=== PATIENT | female | born 1995 | race American Indian/Alaskan Native ===

== ENCOUNTER 2018-11-20 18:34 | Emergency (ER) | payer MEDICAID ==
[2018-11-20] MEDS ORDERED: ATROVENT IH ONE ×2 (18:44→20:23)
[2018-11-20] MEDS ORDERED: PROVENTIL IH ONE ×2 (18:44→20:23)
--- NOTE | 2018-11-20 18:44 | Emergency Department Report ---
Chief Complaint: Dyspnea/Respdistress Stated Complaint: COLD/FLU Time Seen by Provider: 11/20/18 18:40 - HPI History of Present Illness: Pt presents with a cough that began two days ago states she congestion, SOB, wheezing, nasal discharge + sick contact from daughter no fever has seasonal allergies, has not taken anything LNMP currently on cycle no previous PMHx of asthma states she took her nieces nebulizer treatment +smoker daily MSE screening note: Focused history and physical exam performed. Due to findings the following was ordered: CXR, neb tx ED Disposition for MSE Condition: Stable
--- NOTE | 2018-11-20 20:07 | XRay Report ---
PROCEDURE: XR CHEST ROUTINE 2V TECHNIQUE: PA and lateral chest radiographs were obtained. HISTORY: cough, wheezing COMPARISONS: None. FINDINGS: Heart: Normal. Mediastinum/Vessels: Normal. Lungs/Pleural space: Normal. Bony thorax: No acute osseous abnormality. IMPRESSION: Normal examination. This document is electronically signed by Stephanie Elise MD., Nov 20 2018 08:05:24 PM ET
[2018-11-20] MEDS ORDERED: AUGMENTIN 875 MG PO ONE (20:21)
[2018-11-20] MEDS ORDERED: SOLU-Medrol IV ONE (20:23)
--- NOTE | 2018-11-20 20:25 | Emergency Department Report ---
Minor Respiratory - HPI Chief Complaint: Dyspnea/Respdistress Stated Complaint: COLD/FLU Time Seen by Provider: 11/20/18 18:40 Duration: 1 Day Pain Location: Chest (tightness and wheezing in 8/10 and worse with cough and) Severity: severe Minor Respiratory: Yes Rhinorrhea (started with nasal congestion and runny nose with mild cough), Yes Able to Tolerate Fluids, Yes Cough (congested cough), Yes Sick Contacts, Yes Chest Pain (with cough), Yes Shortness of Breath (on exertion), No Sore Throat, No Ear Pain, No Hemoptysis, No Fever Other History: This is a 23-year-old female here reports that she is having some shortness of breath since last evening. She denies any history of asthma. She reports that she has been coughing and as this started about a week ago with runny nose and congestion and occasional cough. She said her child was sick. She reports that she is wheezing and coughing up phlegm. Denies any fever or chills. Denies any nausea or vomiting. Denies any headache. Denies any sore throat. [id number] medication taken without any help. Denies any medical condition. Pain is only with cough, 8/10 and achy to chest. ED Review of Systems ROS: Stated complaint: COLD/FLU Other details as noted in HPI Constitutional: denies: chills, fever Eyes: denies: eye discharge ENT: congestion (I). denies: ear pain, throat pain Respiratory: cough, shortness of breath, SOB with exertion, wheezing. denies: SOB at rest, stridor Cardiovascular: chest pain (with cough). denies: palpitations, dyspnea on exertion, edema, syncope Gastrointestinal: denies: abdominal pain, nausea, vomiting Musculoskeletal: denies: back pain, arthralgia Skin: denies: rash Neurological: denies: headache, numbness ED Past Medical Hx - Past Medical History Previous Medical History?: No - Surgical History Past Surgical History?: No - Family History Family history: hypertension - Social History Smoking Status: Current Every Day Smoker Substance Use Type: Alcohol, Marijuana, Other - Medications Home Medications: Home Medications Medication Instructions Recorded Confirmed Last Taken Type ALBUTEROL Inhaler (OR & NICU) 2 puff IH Q6H PRN #1 inhalation 11/20/18 Unknown Rx [ProAir HFA Inhaler] Cetirizine HCl [ZyrTEC] 10 mg PO QAM 14 Days #14 capsule 11/20/18 Unknown Rx Fluticasone [Flonase] 1 spray NS QDAY 14 Days #14 bottle 11/20/18 Unknown Rx Inhaler, Assist Devices [Space 1 each MC ONCE #1 spacer 11/20/18 Unknown Rx Chamber Plus] guaiFENesin/CODEINE [Robitussin AC] 10 ml PO QHS PRN #70 oral.liqd 11/20/18 Unknown Rx methylPREDNISolone [Medrol Dose 4 mg PO DAILY #1 tab.ds.pk 11/20/18 Unknown Rx Erickson] Minor Respiratory Exam - Exam General: Vital signs noted. No distress. Alert and acting appropriately. This is a 23-year-old female well-nourished well-developed in no acute distress. HEENT: Yes Moist Mucous Membranes, Yes Rhinorrhea (with nasal congestion), No Pharyngeal Erythema, No Pharyngeal Exudates, No Conjuctival Injection, No Frontal Tenderness, No Maxillary Tenderness Ear: Neither TM Bulge, Neither TM Erythema, Neither EAC Pain, Neither EAC D ischarge Neck: Yes Supple (nontender to palpate. Full range of motion), No Adenopathy Lungs: Yes Wheezes (patient will wheezing to bilateral upper and lower lung martinez.), Yes Ronchi (upper lung martinez), Yes Cough (congested cough), No Stridor, No Labored Respirations, No Retractions, No Use of Accessory Muscles, No Other Abnormal Lung Sounds Heart: Yes Regular (mild tachycardia at 103), No Murmur Abdomen: Yes Normal Bowel Sounds, No Tenderness (normal bowel sounds and nontender to palpate in all quadrants), No Peritoneal Signs Skin: No Rash, No Edema Neurologic: Alert and oriented, no deficits. Musculoskeletal: Unremarkable. No cce. + 2 pulses in all extremities, no neurovascular compromise ED Course Vital Signs 11/20/18 11/20/18 11/20/18 18:41 18:52 18:54 Temperature 98 F Pulse Rate 103 H Pulse Rate [ 112 H Throughout] Respiratory 22 18 Rate Respiratory 20 Rate [ Throughout] Blood Pressure 116/69 O2 Sat by Pulse 94 Oximetry Vital Signs 11/20/18 11/20/18 11/20/18 18:41 18:52 18:54 Temperature 98 F Pulse Rate 103 H Pulse Rate [ 112 H Throughout] Respiratory 22 18 Rate Respiratory 20 Rate [ Throughout] Blood Pressure 116/69 Blood Pressure [Right] O2 Sat by Pulse 94 Oximetry 11/20/18 11/20/18 20:39 23:10 Temperature 97.6 F Pulse Rate 95 H Pulse Rate [ 102 H Throughout] Respiratory 18 Rate Respiratory 20 Rate [ Throughout] Blood Pressure Blood Pressure 119/79 [Right] O2 Sat by Pulse 97 Oximetry - Reevaluation(s) Reevaluation #1: 11/20/18 19:30 I saw patient and she was already started on albuterol 5 mg and Atrovent 0.5 mg and she still with congested cough and wheezing and rhonchi to lung martinez. She says she is feeling a little better but still wheezing. She denies any shortne ss of breath at present. Reevaluation #2: 11/20/18 22:01 Patient was given additional 5 mg of albuterol with one milligrams of Atrovent nebulizer, Solu-Medrol 125 mg IV given. Upon reevaluation, patient states she is feeling much better. She has minimal wheeze in with no rhonchi. Wheezes and is located to upper lung martinez. Denies any shortness of breath or chest pain and cough is better. ED Medical Decision Making - Radiology Data Radiology results: report reviewed Two-view x-ray of chest dictated by radiologist's report reviewed by myself. Please see details below Findings [facility] [address] [place] [address] XRay Report Signed Patient: CHESTER FRANKS MR#: [id number] : 1995 Acct:[id number] Age/Sex: 23 / F ADM Date: 11/20/18 Loc: ED Attending Dr: Ordering Physician: JUANITA CASTRO Date of Service: 11/20/18 Procedure(s): XR chest routine 2V Accession Number(s): [id number] cc: JUANITA CASTRO Fluoro Time In Minutes: PROCEDURE: XR CHEST ROUTINE 2V TECHNIQUE: PA and lateral chest radiographs were obtained. HISTORY: cough, wheezing COMPARISONS: None. FINDINGS: Heart: Normal. Mediastinum/Vessels: Normal. Lungs/Pleural space: Normal. Bony thorax: No acute osseous abnormality. IMPRESSION: Normal examination. This document is electronically signed by Yakov Ricardo MD., Nov 20 2018 08:05:24 PM ET Transcribed By: THIEN Dictated By: YAKOV RICARDO Electronically Authenticated By: YAKOV RICARDO Signed Date/Time: 11/20/182006 DD/ 56 TD/TT: 11/20/181956 - Medical Decision Making This is a 23-year-old female here reports that she has been having shortness of breath and denies any history of any medical problem. She has shortness of breath on exertion and cough and has been having upper respiratory symptoms that preceded, wheezing, shortness of breath and exertion and continual coughing. She was exposed to her child was sick. Chest x-ray: Dictated by radiologist report reviewed by myself in no acute findings. Medication: Patient was given a total of 10 mg of albuterol, 1.5 mg of Atrovent nebulizer. She was given Solu-Medrol 125 mg IV and upon reevaluation 2 she says she felt a lot better, she does not have any chest pain, no shortness of breath and her wheezing has subsided with minimal wheezing to bilateral upper lung field and no rhonchi. No use of accessory muscles. Vital signs stable. A moderate - Differential Diagnosis PNA, bronchitis, asthma, URI with cough and congestion Critical care attestation.: If time is entered above; I have spent that time in minutes in the direct care of this critically ill patient, excluding procedure time. ED Disposition Clinical Impression: Cough in adult Acute bronchitis Qualifiers: Bronchitis organism: unspecified organism Qualified Code(s): J20.9 - Acute bronchitis, unspecified Disposition: DC-01 TO HOME OR SELFCARE Is pt being admited?: No Does the pt Need Aspirin: No Condition: Stable Instructions: Acute Bronchitis (ED), Acute Cough (ED) Additional Instructions: Please follow up with primary care physician in 2-3 days and if he do not have a primary care physician follow-up at the outside [facility] Center Take albuterol Take guaifenesin with codeine cough syrup once nightly as needed before bed time and this medication can cause drowsiness. Do not drive or operate heavy machinery while taking this medication Take Flonase,and Zyrtec for upper respiratory with cough and congestion Take Augmentin antibiotic, albuterol, Medrol Dosepak for bronchitis but please take this medication with food as it can cause upset stomach. If your condition worsens, return to the emergency room. Flush nostrils with nasal saline wash. If your condition worsens, please return to the emergency room SATHISH Referrals: ROMY OROZCO MD [Primary Care Provider] - 11/22/18 Forms: Work/School Release Form(ED)
[2018-11-20 23:11] VITALS: BP 119/79
== END 2018-11-20 23:35 | disposition home or self-care (01) ==
LOC: ED 18:34
DX: J20.9 Acute bronchitis, unspecified (principal); F17.200 Nicotine dependence, unspecified, uncomplicated; F12.10 Cannabis abuse, uncomplicated
CPT/HCPCS: 71046; 94640; 96374; 99283; J2930

== ENCOUNTER 2019-06-23 10:15 | Emergency (ER) | payer MEDICAID ==
[2019-06-23 10:22] VITALS: BP 125/74
[2019-06-23 11:02] LABS: Bacteria,Urine 1+ /HPF (Negative); Bilirubin,Urine NEG (Negative); Blood,Urine NEG (Negative); Color,Urine Yellow (Yellow); Mucus,Urine FEW /HPF; Protein,Urine <15 mg/dL mg/dL (Negative)
[2019-06-23 11:29] LABS: Basophils % (Auto) 0.3 % (0.0-1.8); Eosinophils # (Auto) 0.1 K/mm3 (0.0-0.4); Eosinophils % (Auto) 1.4 % (0.0-4.3); Hematocrit 39.7 % (30.3-42.9); Hemoglobin 12.9 gm/dl (10.1-14.3); Lymphocytes # (Auto) 1.7 K/mm3 (1.2-5.4); Lymphocytes % (Auto) 20.1 % (13.4-35.0); Mean Corpuscular HGB Conc 33 % (30-34); Mean Corpuscular Volume 80 fl (79-97); Monocytes # (Auto) 0.6 K/mm3 (0.0-0.8); Monocytes % (Auto) 7.2 % (0.0-7.3); Platelet Count 208 K/mm3 (140-440); Red Blood Count 4.99 M/mm3 (3.65-5.03); Red Cell Distribution Width 17.1 % (13.2-15.2)
[2019-06-23 11:38] LABS: Alanine Aminotransferase 21 units/L (7-56); Albumin 4.4 g/dL (3.9-5); BUN/Creatinine Ratio 12; Blood Urea Nitrogen 7 mg/dL (7-17); Calcium 9.4 mg/dL (8.4-10.2); Hemolysis Index 3
--- NOTE | 2019-06-23 12:18 | Emergency Department Report ---
ED Female HPI - General Chief complaint: Abdominal Pain Stated complaint: ABDOMINAL PAIN/NAUSEA (PREG) Time Seen by Provider: 06/23/19 11:18 Source: patient Mode of arrival: Ambulatory Limitations: No Limitations - History of Present Illness Initial comments: This is a 24-year-old female at approximately 6 weeks gestation presents to ED complaining of upper abdominal cramping with nausea vomiting. Patient states that she has not received care for this . States that she went to [facility] once. Patient states the pain is worse and after vomiting. Patient states discussed pain as cramping type pain localized to the upper mid abdomen region Patient denies lower pelvic pain, vaginal bleeding, vaginal discharge, dysuria or any other symptoms. - Related Data Previous Rx's Medication Instructions Recorded Last Taken Type ALBUTEROL Inhaler (OR & NICU) 2 puff IH Q6H PRN #1 inhalation 11/20/18 Unknown Rx [ProAir HFA Inhaler] Amoxicillin/K Clav Tab [Augmentin 1 tab PO Q12HR #20 tab 11/20/18 Unknown Rx 875MG TAB] Cetirizine HCl [ZyrTEC] 10 mg PO QAM 14 Days #14 capsule 11/20/18 Unknown Rx Fluticasone [Flonase] 1 spray NS QDAY 14 Days #14 bottle 11/20/18 Unknown Rx Inhaler, Assist Devices [Space 1 each MC ONCE #1 spacer 11/20/18 Unknown Rx Chamber Plus] guaiFENesin/CODEINE [Robitussin AC] 10 ml PO QHS PRN #70 oral.liqd 11/20/18 Unkn own Rx methylPREDNISolone [Medrol Dose 4 mg PO DAILY #1 tab.ds.pk 11/20/18 Unknown Rx Erickson] Ondansetron [Zofran ODT TAB] 8 mg PO Q12HR 20 Days #20 06/23/19 Unknown Rx tab.rapdis raNITIdine HCl [Zantac] 150 mg PO BID #20 tablet 06/23/19 Unknown Rx Allergies Allergy/AdvReac Type Severity Reaction Status Date / Time No Known Allergies Allergy Unverified 11/20/18 18:44 ED Review of Systems ROS: Stated complaint: ABDOMINAL PAIN/NAUSEA (PREG) Other details as noted in HPI Comment: All other systems reviewed and negative ED Past Medical Hx - Past Medical History Previous Medical History?: No - Surgical History Past Surgical History?: No - Social History Smoking Status: Never Smoker Substance Use Type: None - Medications Home Medications: Home Medications Medication Instructions Recorded Confirmed Last Taken Type ALBUTEROL Inhaler (OR & NICU) 2 puff IH Q6H PRN #1 inhalation 11/20/18 Unknown Rx [ProAir HFA Inhaler] Amoxicillin/K Clav Tab [Augmentin 1 tab PO Q12HR #20 tab 11/20/18 Unknown Rx 875MG TAB] Cetirizine HCl [ZyrTEC] 10 mg PO QAM 14 Days #14 capsule 11/20/18 Unknown Rx Fluticasone [Flonase] 1 spray NS QDAY 14 Days #14 bottle 11/20/18 Unknown Rx Inhaler, Assist Devices [Space 1 each MC ONCE #1 spacer 11/20/18 Unknown Rx Chamber Plus] guaiFENesin/CODEINE [Robitussin AC] 10 ml PO QHS PRN #70 oral.liqd 11/20/18 Unknown Rx methylPREDNISolone [Medrol Dose 4 mg PO DAILY #1 tab.ds.pk 11/20/18 Unknown Rx Erickson] Ondansetron [Zofran ODT TAB] 8 mg PO Q12HR 20 Days #20 06/23/19 Unknown Rx tab.rapdis raNITIdine HCl [Zantac] 150 mg PO BID #20 tablet 06/23/19 Unknown Rx ED Physical Exam - General Limitations: No Limitations General appearance: alert, in no apparent distress - Head Head exam: Present: atraumatic, normocephalic - Eye Eye exam: Present: normal appearance - ENT ENT exam: Present: mucous membranes moist - Neck Neck exam: Present: normal inspection - Respiratory Respiratory exam: Present: normal lung sounds bilaterally. Absent: respiratory distress - Cardiovascular Cardiovascular Exam: Present: regular rate, normal rhythm. Absent: systolic murmur, diastolic murmur, rubs, gallop - GI/Abdominal GI/Abdominal exam: Present: soft, normal bowel sounds. Absent: distended, tenderness, mass - Extremities Exam Extremities exam: Present: normal inspection - Back Exam Back exam: Present: normal inspection - Neurological Exam Neurological exam: Present: alert, oriented X3 - Psychiatric Psychiatric exam: Present: normal affect, normal mood - Skin Skin exam: Present: warm, dry, intact, normal color. Absent: rash ED Course Vital Signs 06/23/19 10:21 Temperature 97.9 F Pulse Rate 69 Respiratory 20 Rate Blood Pressure 125/74 O2 Sat by Pulse 99 Oximetry ED Medical Decision Making - Lab Data Result diagrams: 06/23/19 10:57 06/23/19 10:57 Laboratory Last Values WBC 8.5 K/mm3 (4.5-11.0) 06/23/19 10:57 RBC 4.99 M/mm3 (3.65-5.03) 06/23/19 10:57 Hgb 12.9 gm/dl (10.1-14.3) 06/23/19 10:57 Hct 39.7 % (30.3-42.9) 06/23/19 10:57 MCV 80 fl (79-97) 06/23/19 10:57 MCH 26 pg (28-32) L 06/23/19 10:57 MCHC 33 % (30-34) 06/23/19 10:57 RDW 17.1 % (13.2-15.2) H 06/23/19 10:57 Plt Count 208 K/mm3 (140-440) 06/23/19 10:57 Lymph % (Auto) 20.1 % (13.4-35.0) 06/23/19 10:57 Centre % (Auto) 7.2 % (0.0-7.3) 06/23/19 10:57 Eos % (Auto) 1.4 % (0.0-4.3) 06/23/19 10:57 Baso % (Auto) 0.3 % (0.0-1.8) 06/23/19 10:57 Lymph # 1.7 K/mm3 (1.2-5.4) 06/23/19 10:57 Centre # 0.6 K/mm3 (0.0-0.8) 06/23/19 10:57 Eos # 0.1 K/mm3 (0.0-0.4) 06/23/19 10:57 Baso # 0.0 K/mm3 (0.0-0.1) 06/23/19 10:57 Seg Neutrophils % 71.0 % (40.0-70.0) H 06/23/19 10:57 Seg Neutrophils # 6.0 K/mm3 (1.8-7.7) 06/23/19 10:57 Sodium 133 mmol/L (137-145) L 06/23/19 10:57 Potassium 3.6 mmol/L (3.6-5.0) 06/23/19 10:57 Chloride 96.6 mmol/L (98-107) L 06/23/19 10:57 Carbon Dioxide 20 mmol/L (22-30) L 06/23/19 10:57 Anion Gap 20 mmol/L 06/23/19 10:57 BUN 7 mg/dL (7-17) 06/23/19 10:57 Creatinine 0.6 mg/dL (0.7-1.2) L 06/23/19 10:57 Estimated GFR > 60 ml/min 06/23/19 10:57 BUN/Creatinine Ratio 12 % 06/23/19 10:57 Glucose 92 mg/dL (65-100) 06/23/19 10:57 Calcium 9.4 mg/dL (8.4-10.2) 06/23/19 10:57 Total Bilirubin 0.60 mg/dL (0.1-1.2) 06/23/19 10:57 AST 26 units/L (5-40) 06/23/19 10:57 ALT 21 units/L (7-56) 06/23/19 10:57 Alkaline Phosphatase 56 units/L (35-129) 06/23/19 10:57 Total Protein 8.3 g/dL (6.3-8.2) H 06/23/19 10:57 Albumin 4.4 g/dL (3.9-5) 06/23/19 10:57 Albumin/Globulin Ratio 1.1 % 06/23/19 10:57 HCG, Qual Positive (Negative) 06/23/19 10:57 Urine Color Yellow (Yellow) 06/23/19 Unknown Urine Turbidity Slightly-cloudy (Clear) 06/23/19 Unknown Urine pH 6.0 (5.0-7.0) 06/23/19 Unknown Ur Specific [place] 1.015 (1.003-1.030) 06/23/19 Unknown Urine Protein <15 mg/dl mg/dL (Negative) 06/23/19 Unknown Urine Glucose (UA) Neg mg/dL (Negative) 06/23/19 Unknown Urine Ketones 20 mg/dL (Negative) 06/23/19 Unknown Urine Blood Neg (Negative) 06/23/19 Unknown Urine Nitrite Neg (Negative) 06/23/19 Unknown Urine Bilirubin Neg (Negative) 06/23/19 Unknown Urine Urobilinogen 4.0 mg/dL (<2.0) 06/23/19 Unknown Ur Leukocyte Esterase Neg (Negative) 06/23/19 Unknown Urine WBC (Auto) 2.0 /HPF (0.0-6.0) 06/23/19 Unknown Urine RBC (Auto) 4.0 /HPF (0.0-6.0) 06/23/19 Unknown U Epithel Cells (Auto) 27.0 /HPF (0-13.0) H 06/23/19 Unknown Urine Bacteria (Auto) 1+ /HPF (Negative) 06/23/19 Unknown Urine Mucus Few /HPF 06/23/19 Unknown - Medical Decision Making This 24-year-old female presents with gastritis/acid reflux in . Discussed with patient to take anti-assays prior to eating. Discussed the patient will send her home on nausea medication to avoid vomiting and worsening symptoms. All labs are within normal limits CBC, BMP, urinalyses were all normal no signs of infection. Discussed the patient to follow-up with OB. Ultrasound shows no acute findings. Patient is not ill-appearing, no signs of acute abdomen. Vital signs are normal Critical care attestation.: If time is entered above; I have spent that time in minutes in the direct care of this critically ill patient, excluding procedure time. ED Disposition Clinical Impression: Gastritis, Nausea and vomiting during Disposition: DC-01 TO HOME OR SELFCARE Is pt being admited?: No Does the pt Need Aspirin: No Condition: Stable Instructions: Abdominal Pain (ED), Gastritis (ED) Additional Instructions: Make sure to follow up with the primary care physician as discussed. Take all your medications as you've been prescribed. If you have any worsening symptoms or develop new symptoms please return to ED immediately. Prescriptions: raNITIdine HCl [Zantac] 150 mg PO BID #20 tablet Ondansetron [Zofran ODT TAB] 8 mg PO Q12HR 20 Days #20 tab.ashwin Referrals: PRIMARY CARE, [Primary Care Provider] - 3-5 Days [facility] [Provider Group] - 3-5 Days [facility] [Provider Group] - 3-5 Days Forms: Accompanied Note, Work/School Release Form(ED) Time of Disposition: 13:22
[2019-06-23] MEDS ORDERED: FAMOTIDINE 20 MG TAB PO ONE (13:37)
[2019-06-23] MEDS ORDERED: ONDANSETRON 4 MG ODT TAB PO ONE (13:49)
--- NOTE | 2019-06-23 13:54 | Ultrasound Report ---
ULTRASOUND OBSTETRIC Indication: Pelvic pain Findings: There is a single, living intrauterine . [place]-rump length = 5 mm = 6 weeks, 2 day(s). heart rate is 126 beats per minute. The ovaries are normal. There is no free fluid. Small nabothian cyst is noted at the cervix. There is a 1.5 x 0.5 x 0.7 cm subchorionic hemorrhage Impression: Single, living intrauterine with estimated sonographic age of 6 weeks, 2 day(s). There is a small subchorionic bleed. Signer Name: Dontae Eisenberg MD Signed: 06/23/2019 1:49 PM Workstation Name: [id number]
== END 2019-06-23 14:28 | disposition home or self-care (01) ==
LOC: ED 10:15
DX: O99.611 Diseases of the digestive system complicating pregnancy, first trimester (principal); K29.70 Gastritis, unspecified, without bleeding; Z79.2 Long term (current) use of antibiotics; Z79.899 Other long term (current) drug therapy; Z3A.01 Less than 8 weeks gestation of pregnancy
CPT/HCPCS: 36415; 76801; 76817; 80053; 81001; 84703; 85025; Q0162

== ENCOUNTER 2019-08-24 19:01 | Emergency (ER) | payer MEDICAID | END 2019-08-24 19:30 | disposition left against medical advice (07) | LOC: ED 19:01 | DX: N89.8 Other specified noninflammatory disorders of vagina (principal); Z53.21 Procedure and treatment not carried out due to patient leaving prior to being seen by health care provider ==

== ENCOUNTER 2019-08-25 20:14 | Emergency (ER) | payer MEDICAID ==
[2019-08-25 20:34] VITALS: BP 119/56
--- NOTE | 2019-08-25 21:20 | Emergency Department Report ---
Chief Complaint: Urogenital-Female Stated Complaint: YEAST INFECTION/16 WEEEKS Time Seen by Provider: 08/25/19 21:13 - HPI History of Present Illness: 24 y/o female comes in for yeast infection times 3 days. Had yeast infection last month and reports that she was treated with a pill by her primary provider. No abdominal pain. 13 weeks preg. 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 - Exam Vital Signs: Vital Signs 08/25/19 20:28 Temperature 98.6 F Pulse Rate 89 Respiratory 12 Rate Blood Pressure 119/56 O2 Sat by Pulse 100 Oximetry Physical Exam: AxO times 3 NAD AxO times 3 NAD Ambulatory without difficulties. MSE screening note: Focused history and physical exam performed. Due to findings the following was ordered: 24 y/o female comes in for yeast infection times 3 days. Had yeast infection last month and reports that she was treated with a pill by her primary provider. No abdominal pain. 13 weeks preg. ED Disposition for MSE Disposition: Z-07 MED SCREENING EXAM-LEFT Is pt being admited?: No Does the pt Need Aspirin: No Condition: Stable Additional Instructions: Recommend Over the counter yeast cream for 7 days and apply over the outer labia. Referrals: Your,[facility] HEALTH EDUCATOR [Other] - 3-5 Days
== END 2019-08-25 21:46 | disposition left against medical advice (07) ==
LOC: ED 20:14
DX: B37.9 Candidiasis, unspecified (principal)
CPT/HCPCS: 99282

== ENCOUNTER 2019-10-04 18:25 | Emergency (ER) | payer MEDICAID ==
[2019-10-04 18:42] VITALS: BP 118/65
--- NOTE | 2019-10-04 18:44 | Emergency Department Report ---
ED ENT HPI - General Chief complaint: Earache Stated complaint: RT SIDE EARACHE Time Seen by Provider: 10/04/19 18:39 Source: patient Mode of arrival: Ambulatory Limitations: No Limitations - History of Present Illness Initial comments: This is a 24-year-old female nontoxic well in appearance with no signs of distress presents to the ED with complaint of right earache. Patient denies any hearing loss. Denies any mastoid tenderness. Denies any fever, chills, headache, nausea, vomiting, chest pain or SOB. Denies any other complaints. Denies any allergies. MD complaint: ear pain -: days(s) Location: R ear Severity: mild Severity scale (0 -10): 8 Quality: aching Consistency: constant Improves with: none Worsens with: none Associated Symptoms: denies: fever, cough, gum swelling, toothache, pain with swallowing, sore throat, tinnitus, hearing loss, discharge from ear, rhinorrhea - Related Data Previous Rx's Medication Instructions Recorded Last Taken Type Albuterol INH(or & Nicu Only) 2 puff IH Q6H PRN #1 inhalation 11/20/18 Unknown Rx [ProAir HFA Inhaler] Amoxicillin/K Clav Tab [Augmentin 1 tab PO Q12HR #20 tab 11/20/18 Unknown Rx 875MG TAB] Cetirizine HCl [ZyrTEC] 10 mg PO QAM 14 Days #14 capsule 11/20/18 Unknown Rx Fluticasone [Flonase] 1 spray NS QDAY 14 Days #14 bottle 11/20/18 Unknown Rx Inhaler, Assist Devices [Space 1 each MC ONCE #1 spacer 11/20/18 Unknown Rx Chamber Plus] guaiFENesin/CODEINE [Robitussin AC] 10 ml PO QHS PRN #70 oral.liqd 11/20/18 Unknown Rx methylPREDNISolone [Medrol Dose 4 mg PO DAILY #1 tab.ds.pk 11/20/18 Unknown Rx Erickson] Ondansetron [Zofran ODT TAB] 8 mg PO Q12HR 20 Days #20 06/23/19 Unknown Rx tab.rapdis raNITIdine HCl [Zantac] 150 mg PO BID #20 tablet 06/23/19 Unknown Rx Amoxicillin/K Clav Tab [Augmentin 1 tab PO Q12HR #20 tab 10/04/19 Unknown Rx 875 mg] Allergies Allergy/AdvReac Type Severity Reaction Status Date / Time No Known Allergies Allergy Unverified 11/20/18 18:44 ED Dental HPI - General Chief complaint: Earache Stated complaint: RT SIDE EARACHE Time Seen by Provider: 10/04/19 18:39 Source: patient Mode of arrival: Ambulatory Limitations: No Limitations - Related Data Previous Rx's Medication Instructions Recorded Last Taken Type Albuterol INH(or & Nicu Only) 2 puff IH Q6H PRN #1 inhalation 11/20/18 Unknown Rx [ProAir HFA Inhaler] Amoxicillin/K Clav Tab [Augmentin 1 tab PO Q12HR #20 tab 11/20/18 Unknown Rx 875MG TAB] Cetirizine HCl [ZyrTEC] 10 mg PO QAM 14 Days #14 capsule 11/20/18 Unknown Rx Fluticasone [Flonase] 1 spray NS QDAY 14 Days #14 bottle 11/20/18 Unknown Rx Inhaler, Assist Devices [Space 1 each MC ONCE #1 spacer 11/20/18 Unknown Rx Chamber Plus] guaiFENesin/CODEINE [Robitussin AC] 10 ml PO QHS PRN #70 oral.liqd 11/20/18 Unknown Rx methylPREDNISolone [Medrol Dose 4 mg PO DAILY #1 tab.ds.pk 11/20/18 Unknown Rx Erickson] Ondansetron [Zofran ODT TAB] 8 mg PO Q12HR 20 Days #20 06/23/19 Unknown Rx tab.rapdis raNITIdine HCl [Zantac] 150 mg PO BID #20 tablet 06/23/19 Unknown Rx Amoxicillin/K Clav Tab [Augmentin 1 tab PO Q12HR #20 tab 10/04/19 Unknown Rx 875 mg] Allergies Allergy/AdvReac Type Severity Reaction Status Date / Time No Known Allergies Allergy Unverified 11/20/18 18:44 ED Review of Systems ROS: Stated complaint: RT SIDE EARACHE Other details as noted in HPI Constitutional: denies: chills, fever Eyes: denies: eye pain, eye discharge, vision change ENT: ear pain. denies: throat pain Respiratory: denies: cough, shortness of breath, wheezing Cardiovascular: denies: chest pain, palpitations Endocrine: no symptoms reported Gastrointestinal: denies: abdominal pain, nausea, diarrhea Genitourinary: denies: urgency, dysuria, discharge Musculoskeletal: denies: back pain, joint swelling, arthralgia Skin: denies: rash, lesions Neurological: denies: headache, weakness, paresthesias Psychiatric: denies: anxiety, depression Hematological/Lymphatic: denies: easy bleeding, easy bruising ED Past Medical Hx - Past Medical History Previous Medical History?: No - Surgical History Past Surgical History?: No - Social History Smoking Status: Never Smoker Substance Use Type: None - Medications Home Medications: Home Medications Medication Instructions Recorded Confirmed Last Taken Type Albuterol INH(or & Nicu Only) 2 puff IH Q6H PRN #1 inhalation 11/20/18 Unknown Rx [ProAir HFA Inhaler] Amoxicillin/K Clav Tab [Augmentin 1 tab PO Q12HR #20 tab 11/20/18 Unknown Rx 875MG TAB] Cetirizine HCl [ZyrTEC] 10 mg PO QAM 14 Days #14 capsule 11/20/18 Unknown Rx Fluticasone [Flonase] 1 spray NS QDAY 14 Days #14 bottle 11/20/18 Unknown Rx Inhaler, Assist Devices [Space 1 each MC ONCE #1 spacer 11/20/18 Unknown Rx Chamber Plus] guaiFENesin/CODEINE [Robitussin AC] 10 ml PO QHS PRN #70 oral.liqd 11/20/18 Unknown Rx methylPREDNISolone [Medrol Dose 4 mg PO DAILY #1 tab.ds.pk 11/20/18 Unknown Rx Erickson] Ondansetron [Zofran ODT TAB] 8 mg PO Q12HR 20 Days #20 06/23/19 Unknown Rx tab.rapdis raNITIdine HCl [Zantac] 150 mg PO BID #20 tablet 06/23/19 Unknown Rx Amoxicillin/K Clav Tab [Augmentin 1 tab PO Q12HR #20 tab 10/04/19 Unknown Rx 875 mg] ED Physical Exam - General Limitations: No Limitations General appearance: alert, in no apparent distress - Head Head exam: Present: atraumatic, normocephalic - Expanded ENT Exam Expanded Ear exam: Present: normal external inspection TM/Canal exam: Erythema: Right TM, Bulging: Right TM Mouth exam: Present: normal external inspection, tongue normal. Absent: drooling, trismus, muffled voice Teeth exam: Present: normal inspection Throat exam: Positive: normal inspection. Negative: tonsillar erythema, tonsillomegaly, tonsillar exudate, R peritonsillar mass, L peritonsillar mass - Neck Neck exam: Present: normal inspection, full ROM. Absent: tenderness, meningismus, lymphadenopathy ED Course - Reevaluation(s) Reevaluation #1: 10/04/19 18:43 Patient is speaking in full sentences with no signs of distress noted. ED Medical Decision Making - Medical Decision Making Patient was instructed to Follow-up with a primary care doctor in 3-5 days or if symptoms worsen and continue return to emergency room as soon as possible. At time of discharge, the patient does not seem toxic or ill in appearance. No acute signs of distress noted. Patient agrees to discharge treatment plan of care. No further questions noted by the patient. Critical care attestation.: If time is entered above; I have spent that time in minutes in the direct care of this critically ill patient, excluding procedure time. ED Disposition Clinical Impression: Right otitis media Qualifiers: Otitis media type: unspecified Qualified Code(s): H66.91 - Otitis media, unspecified, right ear Disposition: DC-01 TO HOME OR SELFCARE Is pt being admited?: No Does the pt Need Aspirin: No Condition: Stable Instructions: Otitis Media (ED) Additional Instructions: Follow-up with a primary care doctor in 3-5 days or if symptoms worsen and continue return to emergency room as soon as possible. Prescriptions: Amoxicillin/K Clav Tab [Augmentin 875 mg] 1 tab PO Q12HR #20 tab Referrals: PRIMARY MD SHERITA [Referring] - 3-5 Days MELQUIADES BALL MD [Staff Physician] - 3-5 Days [facility] [Provider Group] - 3-5 Days Forms: Work/School Release Form(ED)
== END 2019-10-04 20:26 | disposition home or self-care (01) ==
LOC: ED 18:25
DX: H66.91 Otitis media, unspecified, right ear (principal)
CPT/HCPCS: 99282

== ENCOUNTER 2019-12-10 22:20 | Outpatient (CLI) | payer MEDICAID ==
[2019-12-10 22:44] VITALS: BP 100/68
[2019-12-10] MEDS ORDERED: hydrOXYzine PAMOATE 25 MG CAP PO ONE (23:24)
== END 2019-12-10 23:13 | disposition home or self-care (01) ==
LOC: TRG 22:20 → APU 22:31 → TRG 23:13
PROVIDERS: ATTEND Obstetrics & Gynecology
DX: O26.893 Other specified pregnancy related conditions, third trimester (principal); R10.9 Unspecified abdominal pain; Z3A.31 31 weeks gestation of pregnancy
CPT/HCPCS: 59025; Q0177